=== PATIENT | male | born 1950 | race Caucasian/White ===

== ENCOUNTER → 2020-01-20 | Outpatient (CLI) | payer MEDICARE, MEDICAID ==
--- NOTE | 2020-01-20 10:47 | RAD ---
EXAM: Chest, 2 views. HISTORY: Dyspnea. COMPARISON: None. FINDINGS: 2 views of the chest are obtained. There are small bilateral pleural effusions. There is lingular, right middle lobe and bilateral lower lobe atelectasis or scarring. There is no consolidation. There is no pneumothorax. The heart is normal in size. There is a catheter with the tip in the superior cavoatrial junction. There is a foreign body overlying the left chest due to a nipple ring. IMPRESSION: Small bilateral pleural effusions and bilateral mid and lower lung atelectasis. Electronically signed by: Fatemeh Welsh MD (01/20/2020 10:44 AM) [id number]
== END ==
LOC: DXRAD 10:22
PROVIDERS: ATTEND Internal Medicine Cardiovascular Disease
DX: J98.11 Atelectasis (principal); J90 Pleural effusion, not elsewhere classified
CPT/HCPCS: 71046

== ENCOUNTER 2020-03-25 12:18 | Emergency (ER) | payer MEDICARE, MEDICAID ==
[~2020-03-25] VITALS: Ht 172.7 cm; Wt 63.8 kg
[2020-03-25] MEDS ORDERED: ASPIRIN CHEWABLE 81 MG TABLET. PO ONE (12:30)
--- NOTE | 2020-03-25 12:45 | RAD ---
EXAM: Chest, single view. HISTORY: Chest pain. COMPARISON: 01/20/2020 FINDINGS: A frontal view of the chest is obtained. There is no infiltrate, pleural effusion or pneumo thorax. There is a stable cardiac silhouette. There is a central venous catheter with the tip in the right atrium. There is lucency underlying the right hemidiaphragm due to interposition of colon super ior to the liver, a normal variant. IMPRESSION: No acute pulmonary finding. Electronically signed by: Fatemeh Welsh MD (03/25/2020 12:42 PM) [id number]
[2020-03-25 12:51] LABS: BASO # 0.1 x10^3/uL (0.0-0.2); BASO % 2 % (0-3); EOS # 0.2 x10^3/uL (0.0-0.7); EOS % 4 % (0-3); HEMATOCRIT 38.5 % (39.0-53.0); HEMOGLOBIN 12.8 g/dL (13.0-17.5); LYMPH # 0.7 x10^3/uL (1.0-4.8); LYMPH % 14 % (24-48); MEAN CORPUSCULAR HEMOGLOBIN 33 pg (25-35); MEAN CORPUSCULAR HGB CONC 33 g/dL (31-37); MEAN CORPUSCULAR VOLUME 100 fL (79-100); MONO # 0.6 x10^3/uL (0.0-1.1); MONO % 12 % (0-9); NEUT # 3.8 x10^3uL (1.8-7.7); NEUT % 69 % (31-73); PLATELET COUNT 352 x10^3/uL (140-400); RED BLOOD COUNT 3.87 x10^6/uL (4.30-5.70); RED CELL DISTRIBUTION WIDTH 16.8 % (11.5-14.5); WHITE BLOOD COUNT 5.5 x10^3/uL (4.0-11.0)
--- NOTE | 2020-03-25 12:57 | PHYS DOC ---
Past History Past Medical History: Other (End-stage renal disease) Adult General Chief Complaint Chief Complaint: DIZZY/LIGHT HEADED HPI HPI Patient is a 69-year-old male presenting via EMS for shortness of breath. Patient lives at [facility] and was found by rounding health care provider to have hypoxia on room air at 62%. Patient was immediately placed on 4 L oxygen via nasal cannula and EMS was called. EMS triage patient, despite oxygen levels resolving and being greater than 90% p atient was placed on nonrebreather at 12 L and decision was made to transport to our facility for evaluation. On arrival, patient alert and oriented x3. Denies any recent COVID-19 contact, fever, chest pain, productive cough, abdominal pain, changes in bladder or bowel function, no neurologic symptoms, no changes in motor or sensory function. Reports he is end-stage renal disease patient and attends hemodialysis at [facility] Saturday and Saturday, admits he missed his session yesterday. Admits he feels "heavy" today Review of Systems Review of Systems Fourteen body systems of review of systems have been reviewed. See HPI for pertinent positives and negative responses, other aguayo all other systems are negative, non-pertinent or non-contributory Current Medications Current Medications Current Medications Medications (Trade) Dose Ordered Sig/Dae Start Time Stop Time Status Last Admin Dose Admin Aspirin (Aspirin Chewable) 162 mg 1X ONCE 03/25/20 12:30 03/25/20 12:31 DC 03/25/20 13:23 162 MG Calcium Gluconate (Calcium Gluconate) 1,000 mg 1X ONCE 03/25/20 15:00 03/25/20 15:01 DC Sodium Polystyrene Sulfonate (Sps 15 Gm/60 ml Suspension) 30 gm 1X ONCE 03/25/20 15:00 03/25/20 15:01 DC Allergies Allergies Allergies Coded Allergies Type Severity Reaction Last Updated Verified Penicillins Allergy Unknown 03/25/20 Yes magnesium hydroxide Allergy Unknown 03/25/20 Yes Physical Exam Physical Exam Constitutional: Well developed, well nourished, no acute distress, non-toxic appearance. HENT: Normocephalic, atraumatic, bilateral external ears normal, oropharynx moist, no oral exudates, nose normal. Eyes: PERRLA, EOMI, conjunctiva normal, no discharge. Neck: Normal range of motion, no tenderness, supple, no stridor. Cardiovascular: Heart rate regular, sinus rhythm, no murmurs rubs or gallops Lungs & Thorax: Bilateral breath sounds clear to auscultation Abdomen: Bowel sounds normal, soft, no tenderness, no masses, no pulsatile masses. Nonsurgical abdomen, no peritoneal signs Skin: Warm, dry, no erythema, no rash. Back: No tenderness, no CVA tenderness. Extremities: No tenderness, no cyanosis, no clubbing, ROM intact, no edema. Neurologic: Alert and oriented X 3, grossly normal motor & sensory function, no focal deficits noted. Psychologic: Affect normal, judgement normal, mood normal. Current Patient Data Vital Signs Vital Signs Date Time Temp Pulse Resp B/P (MAP) Pulse Ox O2 Delivery O2 Flow Rate FiO2 03/25/20 13:00 98.4 99 18 127/92 (104) 95 Room Air Lab Results Laboratory Tests Test 03/25/20 12:30 White Blood Count 5.5 x10^3/uL Red Blood Count 3.87 x10^6/uL Hemoglobin 12.8 g/dL Hematocrit 38.5 % Mean Corpuscular Volume 100 fL Mean Corpuscular Hemoglobin 33 pg Mean Corpuscular Hemoglobin Concent 33 g/dL Red Cell Distribution Width 16.8 % Platelet Count 352 x10^3/uL Neutrophils (%) (Auto) 69 % Lymphocytes (%) (Auto) 14 % Monocytes (%) (Auto) 12 % Eosinophils (%) (Auto) 4 % Basophils (%) (Auto) 2 % Neutrophils # (Auto) 3.8 x10^3uL Lymphocytes # (Auto) 0.7 x10^3/uL Monocytes # (Auto) 0.6 x10^3/uL Eosinophils # (Auto) 0.2 x10^3/uL Basophils # (Auto) 0.1 x10^3/uL Sodium Level 132 mmol/L Potassium Level 5.8 mmol/L Chloride Level 94 mmol/L Carbon Dioxide Level 27 mmol/L Anion Gap 11 Blood Urea Nitrogen 69 mg/dL Creatinine 9.7 mg/dL Estimated GFR (Cockcroft-Gault) 5.4 BUN/Creatinine Ratio 7 Glucose Level 81 mg/dL Calcium Level 8.8 mg/dL Magnesium Level 2.0 mg/dL Total Bilirubin 0.3 mg/dL Aspartate Amino Transf (AST/SGOT) 30 U/L Alanine Aminotransferase (ALT/SGPT) 36 U/L Alkaline Phosphatase 142 U/L Troponin I Quantitative 0.048 ng/mL LW-Cht-X-Type Natriuretic Peptide 92073 pg/mL Total Protein 8.0 g/dL Albumin 2.7 g/dL Albumin/Globulin Ratio 0.5 Current Medications Medications (Trade) Dose Ordered Sig/Dae Route PRN Reason Start Time Stop Time Status Last Admin Dose Admin Aspirin (Aspirin Chewable) 162 mg 1X ONCE PO 03/25/20 12:30 03/25/20 12:31 DC 03/25/20 13:23 162 MG Calcium Gluconate (Calcium Gluconate) 1,000 mg 1X ONCE IV 03/25/20 15:00 03/25/20 15:01 DC Sodium Polystyrene Sulfonate (Sps 15 Gm/60 ml Suspension) 30 gm 1X ONCE PO 03/25/20 15:00 03/25/20 15:01 DC EKG EKG EKG ordered and interpreted by myself at 1235 hrs. as sinus rhythm at 90 bpm, QTC 472 otherwise unremarkable intervals, left axis deviation, T wave inversions noted in lead aVL without any other acute ischemic findings, no STEMI Radiology/Procedures Radiology/Procedures EXAM: Chest, single view. HISTORY: Chest pain. COMPARISON: 01/20/2020 FINDINGS: A frontal view of the chest is obtained. There is no infiltrate, pleural effusion or pneumothorax. There is a stable cardiac silhouette. There is a central venous catheter with the tip in the right atrium. There is lucency underlying the right hemidiaphragm due to interposition of colon superior to the liver, a normal variant. IMPRESSION: No acute pulmonary finding. Electronically signed by: Fatemeh Welsh MD (03/25/2020 12:42 PM) [id number] Heart Score HEART Score for Chest Pain: HEART Score for Chest Pain Response (Comments) Value History Slighlty/Non-Suspicious 0 ECG Nonspecific Repolarizatio 1 Age > 65 2 Risk Factors >3 Risk Factors or Hx CAD 2 Troponin < Normal Limit 0 Total 5 Risk Factors: Risk Factors: DM, Current or recent (<one month) smoker, HTN, HLP, family history of CAD, obesity. Risk Scores: Risk Factors: DM, Current or recent (<one month) smoker, HTN, HLP, family history of CAD, obesity. Course & Med Decision Making Course & Med Decision Making ABCs nonconcerning on arrival. Patient saturating greater than 90% without any respiratory distress on evaluation Per history, physical examination and ER work-up, patient hypervolemic which makes sense given that he missed hemodialysis session yesterday Patient is high risk, I discussed this with him and recommended admission. He reports he "felt fine" and would [facility] go back to [facility]. I discussed risks versus benefits of this and he continued to want to leave. I contacted patient's cage fighter, Dr. Durán, and case was discussed at length. She felt patient would benefit from IV calcium gluconate and x1 dose of Kayexalate be administered prior to ER departure with plans to reassimilate into routine hemodialysis sessions tomorrow I discussed this conversation with patient, he was amenable for transport back to [facility] for continued medical management and plans for extended session of hemodialysis tomorrow given hypervolemic state. Strict return precautions were discussed with good understanding by patient, all questions and concerns addressed prior to ER departure Dragon Disclaimer Dragon Disclaimer This electronic medical record was generated, in whole or in part, using a voice recognition dictation system. Departure Departure: Impression: Primary Impression: Shortness of breath Additional Impression: ESRD (end stage renal disease) on dialysis Disposition: DC HOME SELF CARE/HOMELESS Condition: STABLE Referrals: [facility]CPBAR (PCP) Additional Instructions: As discussed prior to ER departure, please utilize supplemental oxygen as needed until you can attend outpatient dialysis as originally scheduled tomorrow. As discussed at length, you are in a fluid heavy state right now after missing your previously scheduled dialysis session yesterday. I spoke with your cage fighter about your presenting symptoms, physical exam findings and laboratory analysis. We agree that you are stable to discharge with plans to have aggressive dialysis session to remove extra fluid off tomorrow. This will help you breathe better and ultimately feel better. If any concerning signs or symptoms present prior to outpatient follow-up with hemodialysis center and/or your primary care physician please do not hesitate to come back for repeat evaluation. It was a pleasure to take care of you and I wish you the best going forward Problem Qualifiers KRYSTINA NESS DO Mar 25, 2020 12:57
[2020-03-25 13:00] VITALS: BP 127/92
[2020-03-25 13:03] LABS: CALCIUM 8.8 mg/dL (8.5-10.1); CREATININE 9.7 mg/dL (0.7-1.3); GFR 5.4; POTASSIUM 5.8 mmol/L (3.5-5.1)
[2020-03-25 13:15] LABS: ALBUMIN 2.7 g/dL (3.4-5.0); ALBUMIN/GLOBULIN RATIO 0.5 (1.0-1.7); TOTAL BILIRUBIN 0.3 mg/dL (0.2-1.0)
--- NOTE | 2020-03-25 13:28 | EKG ---
[address] [address] Test Date: 2020-03-25 Test Time: 12:25:52 Pat Name: JEAN RODRIGUEZ Department: Room: Gender: M Mechanical Manufacturing Technician: ZAIN : 1950 Requested By: KRYSTINA NESS Order Number: [id number] Reading MD: Measurements Intervals Jordan Rate: 90 P: 54 DC: 170 QRS: -62 QRSD: 124 T: 93 QT: 382 QTc: 472 Interpretive Statements SINUS RHYTHM ABNORMAL LEFT AXIS DEVIATION LVH WITH REPOLARIZATION ABNORMALITY ABNORMAL ECG RI6.02 No previous ECG available for comparison
[2020-03-25] MEDS ORDERED: SODIUM POLYSTYRENE SULFONATE 15 GM/60 ML ORAL.SUSP. PO ONE (15:00)
[2020-03-25] MEDS ORDERED: CALCIUM GLUCONATE 1,000 MG/10 ML VIAL IV ONE (15:00)
== END 2020-03-25 16:23 | disposition home or self-care (01) ==
LOC: ER 12:18
DX: R06.02 Shortness of breath (principal); N18.6 End stage renal disease; Z99.2 Dependence on renal dialysis; E78.5 Hyperlipidemia, unspecified; Z88.0 Allergy status to penicillin; Z88.8 Allergy status to other drugs, medicaments and biological substances
CPT/HCPCS: 36415; 71045; 80053; 83735; 83880; 84443; 84484; 85025; 93005; 99285